=== PATIENT | female | born 1995 | race Caucasian/White ===

== ENCOUNTER 2022-06-11 13:29 | Emergency (ER) | payer MEDICAID, SELFPAY ==
[2022-06-11 13:30] VITALS: BP 117/89; PULSE 79; RESP 16; TEMP 36.2; O2SAT 99; BMI 43.1
--- NOTE | 2022-06-11 13:49 | EDS_ITS ---
HPI History of Present Illness Chief Complaint: Back Informant: patient Onset/Context/Timing Onset: Days (5) Context: Sudden Onset Injury: bending Timing: Continuous Quality: Throbbing and - (Cramping, stabbing) Location: Lumbar Worsened by: improves with - (Laying flat) Relieved by: Medications and - (Heat) Associated Symptoms Associated Symptoms: Abdominal Pain and Constipation; Negative for Numbness, Tingling, Radiation to Right Leg, Radiation to Left Leg, Fever, Dysuria, Unable to Ambulate, Unable to Transfer, Urinary Retention, Urinary Incontinence or Fecal Incontinence Narrative Narrative: Patient presents with low back pain that has been constant for the last 5 days. Patient states she was going to the bathroom and was putting her knee brace back on when she felt pain in her low back. Patient states it is mainly on the right. Patient describes her pain as cramping, stabbing, and throbbing. Patient states it is worse when she lays flat. Patient states it is better with hot showers. Patient states she has been taking muscle relaxers which have been helping somewhat. Patient denies any position of comfort. Patient states she has been constipated recently. Patient states the pain does radiate around into her abdomen. Patient admits to some nausea and vomiting. Patient states she went to an urgent care where they checked her urine and noted some blood in her urine. Patient denies any dysuria. Patient denies any bowel or bladder changes. Patient denies any radiation of pain to her lower extremities. PFSH PFSH Medical History no medical history no medical history Home Medications oxycodone-acetaminophen 5 mg-325 mg tablet 1 tab PO Q6H PRN PRN Pain 3 days #12 TABLETS 06/11/22 [Rx Last Taken Unknown] Allergy/AdvReac Type Severity Reaction Status Date / Time acetaminophen [From Vicodin] Allergy Intermediate . Verified 06/11/22 13:30 erythromycin base Allergy Intermediate . Verified 06/11/22 13:30 hydrocodone [From Vicodin] Allergy Intermediate . Verified 06/11/22 13:30 Penicillins Allergy Intermediate . Verified 06/11/22 13:30 Sulfa (Sulfonamide Allergy Intermediate . Verified 06/11/22 13:30 Antibiotics) amoxicillin Allergy Hives Verified 06/11/22 13:30 Surgical History H/O adenoidectomy History of tonsillectomy no surgical history Social History Smoking Status: Never smoker ROS ROS ED Constitutional Constitutional ED: Denies chills or fever(s) Eyes Eyes: Denies blurry vision or change in vision ENT ENT ED: Denies rhinorrhea or sore throat Cardiovascular Cardiovascular: Denies chest pain or palpitations Respiratory/Chest Respiratory/Chest: Reports dyspnea; Denies cough Gastrointestinal Gastrointestinal: Reports nausea and vomiting Genitourinary Genitourinary ED: Reports hematuria; Denies dysuria Musculoskeletal Musculoskeletal: Reports back pain; Denies neck pain Integumentary Denies abscess or rash Neurologic Neurologic: Denies headache(s) or weakness Allergic/Immunologic Allergic/Immunologic ED: Denies mouth swelling or urticaria EXAM Physical Exam Const Vital Signs: 06/11/22 13:30 Temperature 97.2 F L Temperature Source Temporal Pulse Rate 79 Respiratory Rate 16 Blood Pressure 117/89 H Blood Pressure Mean 98 Pulse Ox 99 Oxygen Delivery Method Room Air Positive well nourished, well developed and obese General Appearance ED: well developed and NAD Nutritional Appearance: obese HEENT Reports moist mucous membranes Neck supple and no JVD GI soft to palpation Palpation: tender RLQ (Mild) and RUQ (Mild); Negative for guarding or rebound tenderness present Narrative: There is some mild right CVA tenderness. Back/Spine Back/Spine Narrative: There is mild tenderness over the right lumbar paraspinal area. There is mild right CVA tenderness. There is no edema or ecchymosis. There is no bony crepitance or step-off. There is no midline tenderness. Lumbar Spine / Lower Back: straight leg raise negative bilaterally Neuro oriented x3 and no sensory deficits noted Sensorium / Orientation: alert Motor Exam: strength 5/5 throughout Psych mental status grossly normal MDM MDM MDM Narrative Medical decision making narrative: Patient was given IV fluids and Toradol here. Patient was also given a dose of Zofran. CBC shows a mild leukocytosis of 12.0. Comprehensive metabolic profile was essentially within normal limits. Serum hCG was negative. CT scan of the abdomen pelvis was obtained. There is a 5 mm calculus at the right proximal ureter with moderate hydronephrosis. This was interpreted by the radiologist and reviewed by myself. Urinalysis showed a leukocyte esterases of 500 with 5- 10 white blood cells and 10-25 epithelial cells. There were no bacteria noted. Patient is feeling better on reevaluation. Patient was advised of her findings. Patient was instructed to take [id number] ibuprofen as needed for pain. Patient was also given a prescription for a short course of Lambert to take for severe pain. Patient was instructed to drink plenty of fluids. Patient was instructed to follow-up with her primary care physician in 3 to 5 days. Patient was also given a referral for urology. Patient understands and is agreeable with the plan. All questions were answered. Lab Data Attestation: I reviewed the patient's lab results. Labs: Laboratory Results - last 24 hr 06/11/22 06/11/22 06/11/22 14:23 14:23 14:23 WBC 12.0 H RBC 4.51 Hgb 13.6 Hct 38.8 MCV 86.0 MCH 30.2 MCHC 35.1 RDW Std Deviation 40.0 RDW Coeff of Nallely 12.9 Plt Count 342 MPV 10.5 Immature Gran % (Auto) 0.200 Neut % (Auto) 69.5 Lymph % (Auto) 19.2 [place] % (Auto) 9.5 Eos % (Auto) 0.8 Baso % (Auto) 0.8 Absolute Neuts (auto) 8.3 H Absolute Lymphs (auto) 2.31 Nucleated RBC % 0 Sodium 137 Potassium 3.5 Chloride 105 Carbon Dioxide 26.0 Anion Gap 6 BUN 11 Creatinine 1.02 Estim Creat Clear Calc 64.94 Est GFR (MDRD) Af Amer 83 Est GFR (MDRD) Non-Af 68 BUN/Creatinine Ratio 10.8 Glucose 95 Calcium 9.0 Total Bilirubin 1.30 H AST 20 ALT 20 Alkaline Phosphatase 65 Total Protein 7.8 Albumin 3.6 Globulin 4.2 Albumin/Globulin Ratio 0.9 Serum , Qual NEGATIVE Radiography Diagnostic Testing: Clinical Impression(s) from Imaging Studies Abdomen/Pelvis CT 06/11/22 13:55 IMPRESSION: Right hydroureteronephrosis secondary to a 5 mm calculus within the proximal ureter. Electronically Signed: Shirley Weldon MD at 15:15 EST , Discharge Plan Triage Chief Complaint: Back ED Provider: Robert Miles Dx/Rx/DC Orders Clinical Impression: Calculus of proximal right ureter, Morbid obesity with BMI of 40.0-44.9, adult Instructions: ED Kidney Stone w/ Colic Prescriptions: New oxycodone-acetaminophen [oxycodone-acetaminophen] 5-325 mg tablet 1 tab PO Q6H PRN PRN (Reason: Pain) 3 Days Qty: 12 0RF Primary Care Provider: Care Physician,No Primary Referrals: Melva Singh MD [Med Staff - Heat Treatment Technician] - 3-5 Days Jenny Vyas MD [Med Staff - Active Staff] - 3-5 Days Care Physician,No Primary [Primary Care Provider] - Disposition Disposition: Home, Self Care
--- NOTE | 2022-06-11 13:55 | CT_ITS ---
INDICATION: Right flank pain EXAMINATION: CT ABDOMEN AND PELVIS WITHOUT CONTRAST - CT Abdomen And Pelvis W/O Contrast Injection TECHNIQUE: Helically acquired images were obtained of the abdomen and pelvis without oral or IV contrast. A radiation dose optimization technique was used for this scan. IV Contrast dosage and agent: None. Oral contrast: None. COMPARISON: None. FINDINGS: LOWER CHEST: Lung bases are clear. No cardiomegaly or pericardial effusion. The lack of intravenous contrast limits evaluation of solid visceral organs. LIVER: Homogeneous. No focal mass. GALLBLADDER AND BILIARY TREE: No calcified gallstones. No gallbladder distension or wall edema. No intra- or extrahepatic biliary ductal dilation. PANCREAS: No focal cystic or solid mass. SPLEEN: Normal size without focal cystic or solid mass. ADRENAL GLANDS: No nodules. KIDNEYS AND URETERS: There is right-sided hydroureteronephrosis secondary to a 5 mm calculus within the proximal ureter. PERITONEUM: No ascites or free air. No other fluid collection. BOWEL: No stomach or bowel distension. There is nonvisualization of the appendix. No focal inflammatory change. LYMPH NODES: No enlarged mesenteric or retroperitoneal lymph nodes. VESSELS: Aorta is non-dilated. URINARY BLADDER: Unremarkable. REPRODUCTIVE ORGANS: No pelvic masses. ABDOMINAL WALL: There is a small fat-containing umbilical hernia. BONES: No lytic or blastic abnormality. CT/Abdomen/Pelvis without Cont IMPRESSION: Right hydroureteronephrosis secondary to a 5 mm calculus within the proximal ureter. Electronically Signed: Shirley Weldon MD at 15:15 EST ,
[2022-06-11] MEDS: 0.9% Normal Saline 1,000 ML 1000 ML IV (14:27)
[2022-06-11] MEDS: Ketorolac 30 MG/ML Syringe IV (14:28)
[2022-06-11] MEDS: Ondansetron 4 MG/2 ML Vial IV (14:28)
[2022-06-11 14:35] LABS: Absolute Lymphocyte Count 2.31 X10^3/uL (0.83-4.51); Absolute Neutrophil Count 8.3 X10^3/uL (2.0-7.7); Basophil% 0.8 % (0-1); Eosinophils% 0.8 % (0-5); Hematocrit 38.8 % (37-47); Hemoglobin 13.6 g/dL (12.0-15.0); Lymphocyte # 2.31 X10^3/ul (0.83-4.51); Lymphocyte % 19.2 % (19-41); Mean Corp Hgb Conc 35.1 g/dL (32-36); Mean Corpuscular Hgb 30.2 pg (27.0-32.0); Mean Platelet Vol. 10.5 fl (6.2-12.0); Monocyte# 1.14 X10^3/uL; Monocyte% 9.5 % (0-10); NRBC Flagged by Analyzer 0 % (0-5); Neutrophil # 8.33 X10^3/uL (2.7-7.7); Neutrophil % 69.5 % (47-70); Platelet Count 342 K/mm3 (150-450); RBC Distribution Width CV 12.9 % (11.6-14.6); Red Blood Count 4.51 M/mm3 (4.2-5.4)
[2022-06-11 14:43] LABS: Internal QC Validated? YES +Cl - CLEAR BKGD; Pregnancy, Serum, hCG Quali. NEGATIVE Negative
[2022-06-11 14:45] LABS: Bacteria 0 SEEN /hpf (None Seen); Mucous, Urine 0 SEEN /hpf (<or=2+)
[2022-06-11 14:48] LABS: ALB/GLOB Ratio 0.9 RATIO (0.9-2.4); AST(SGOT) 20 U/L (15-37); Alanine Aminotransfer ALT/SGPT 20 U/L (13-56); Albumin, Serum 3.6 g/dL (3.2-5.0); Alkaline Phosphatase 65 U/L (45-117); Anion Gap 6 (5-15); BUN 11 mg/dL (7-18); BUN/Creat Ratio 10.8 RATIO (10-20); Chloride 105 mmol/L (98-107); Creatinine, Serum 1.02 mg/dL (0.55-1.02); EST Glomerular Filtration Rate 68 mL/min (>60); Est Glom Filt Rate - Afr Amer 83 mL/min (>60); Estimated Creatinine Clearance 64.94 ml/min; Globulin 4.2 g/dL (2.2-4.2); Glucose 95 mg/dL (74-106); Potassium 3.5 mmol/L (3.5-5.1); Protein, Total 7.8 g/dL (6.4-8.2); Sodium Level 137 mmol/L (136-145)
[2022-06-11 15:32] LABS: Color, Urine Yellow (Yellow); Glucose, Dipstick Normal (Normal); Ketone-Dipstick Negative (Negative); Leukocyte Esterase-Dipstick 500 /ul (Negative); Nitrite-Dipstick Negative (Negative); Occult Blood-Urine 50 /ul (Negative); Protein-Dipstick Negative (Negative); Urine Bilirubin Dipstick Negative (Negative); Urine Clarity Clear (Clear); Urine Urobilinogen Normal (Normal)
[2022-06-11 15:39] LABS: Red Blood Cells-Urine 0-5 SEEN /hpf (0-5); Squamous Epithelial Cells - UA 10-25 SEEN /hpf (5-10); White Blood Cells 5-10 SEEN /hpf (0-5)
[2022-06-11 15:55] VITALS: BP 118/75; PULSE 80; RESP 16; O2SAT 98
== END 2022-06-11 16:02 | disposition home or self-care (01) ==
PROVIDERS: Emergency Provider Emergency Medicine; Visit Provider Emergency Medicine
DX: N13.2 Hydronephrosis with renal and ureteral calculous obstruction (principal); E66.01 Morbid (severe) obesity due to excess calories; Z68.41 Body mass index [BMI] 40.0-44.9, adult; R31.9 Hematuria, unspecified; K59.00 Constipation, unspecified
CPT/HCPCS: 74176; 80053; 81001; 84703; 85025; 96361; 96374; 96375; 99282; J7030; J2405

== ENCOUNTER 2024-02-20 06:25 | Emergency (ER) | payer OTHER, SELFPAY ==
[2024-02-20 06:26] VITALS: BP 165/100; PULSE 97; RESP 18; TEMP 36.7; O2SAT 97; BMI 44.5
--- NOTE | 2024-02-20 06:39 | EDS_ITS ---
HPI History of Present Illness Chief Complaint: Allergic Reaction Informant: patient Onset/Context/Timing Onset: Today Timing: Continuous Current Severity: Mild Maximum Severity: Mild Narrative Narrative: 29-year-old female was going to work this morning when a loss flew into her car and stung her once or twice below her right eye. In the past she got stung in her hand and had significant swelling. This occurred today around 6 AM about 35 minutes prior to arrival. She denies any tongue or lip swelling. She denies any shortness of breath or wheezing. She has been holding ice to it. Prior similar symptoms: Yes Recent Illness/Hospitalization: No PFSH PFSH Home Medications ?Medication ?Instructions ?Recorded ?Last Taken ?Type etonogestrel 0.12 mg-ethinyl vag ring vaginal 02/20/24 Unknown History estradiol 0.015 mg/24 hr vaginal ring (EnilloRing) prednisone 20 mg tablet 40 mg (2 x 20 mg) PO DAILY 3 days 02/20/24 Unknown Rx #6 tabs sertraline 25 mg tablet 50 mg PO DAILY 02/20/24 Unknown History Allergy/AdvReac Type Severity Reaction Status Date / Time acetaminophen (From Vicodin) Allergy Intermediate . Verified 02/20/24 06:28 erythromycin base Allergy Intermediate . Verified 02/20/24 06:28 hydrocodone (From Vicodin) Allergy Intermediate . Verified 02/20/24 06:28 Penicillins Allergy Intermediate . Verified 02/20/24 06:28 Sulfa (Sulfonamide Allergy Intermediate . Verified 02/20/24 06:28 Antibiotics) amoxicillin Allergy Hives Verified 02/20/24 06:28 Surgical History H/O adenoidectomy History of tonsillectomy Social History Smoking Status: Never smoker ROS ROS ED ROS Narrative Denies recent illness. Constitutional Constitutional ED: Denies chills or fever(s) Eyes Eyes: Denies blurry vision ENT ENT ED: Denies ear pain Cardiovascular Cardiovascular: Denies chest pain Respiratory/Chest Respiratory/Chest: Denies cough Gastrointestinal Gastrointestinal: Denies abdominal pain Genitourinary Genitourinary ED: Denies dysuria or hematuria Musculoskeletal Musculoskeletal: Denies arthralgias Integumentary Denies abscess Neurologic Neurologic: Denies headache(s) Psychiatric Psychiatric: Denies anxiety Endocrine Endocrinology: Denies cold intolerance Hematologic/Lymphatic Hematologic/Lymphatic: Reports none Allergic/Immunologic Allergic/Immunologic ED: Denies mouth swelling, tongue swelling or urticaria EXAM Physical Exam Narrative Exam Narrative: Well-appearing 29-year-old female. Vital signs stable afebrile. Pulse ox 97% on room air no hypoxia. H EENT exam unremarkable. Neck nontender no lymphadenopathy. Lips and tongue are not swollen. Patient has mild swelling below her right eye. Does not involve the upper or lower lid. There is no stinger currently in the skin. Neck nontender. Lungs clear. Heart regular rhythm no murmur. Abdomen soft nontender. Moving all 4 extremities. Nontender no rashes. She is awake and alert. No focal motor deficits. Const Vital Signs: 02/20/24 06:26 Temperature 98.1 F Temperature Source Oral Pulse Rate 97 Respiratory Rate 18 Blood Pressure 165/100 H Blood Pressure Mean 121 Pulse Ox 97 Oxygen Delivery Method Room Air Positive well nourished and well developed; Negative for cachectic, contractures or unkempt General Appearance ED: well developed and NAD; Negative for unkempt, cachectic, contractures, cyanotic, diaphoretic or pallor Nutritional Appearance: Negative for cachectic HEENT Reports moist mucous membranes; Denies dry mucous membranes HEENT Narrative: Minimal swelling right below her right eye. Does not involve the eye or upper or lower lid. It is along her right cheek. Negative for trauma or tenderness Mouth ED: No dry mucous membranes Mouth: No dry mucous membranes Eyes PERRL and EOMs intact bilaterally General Eye ED: Negative for pale conjunctiva or scleral icterus Neck no lymphadenopathy, supple and no JVD Lymph Lymphatic: Negative for other Chest Wall inspection of chest normal and palpation of chest normal Resp normal respiratory effort and clear to auscultation bilaterally Effort and Inspection: Negative for retractions Auscultation: Negative for rales, rhonchi, wheezes or diminished lung sounds Cardio regular rate, regular rhythm, S1 normal heart sound, S2 normal heart sound and no murmurs GI normal to inspection, nondistended, normoactive bowel sounds, non-tender, non- distended and no masses Palpation: soft; Negative for tender, guarding or rebound tenderness present Back/Spine no CVA tenderness General Back: Negative for CVA tenderness Cervical Spine: Negative for cervical spine tenderness Thoracic Spine / Upper Back: Negative for thoracic spinal tenderness or paraspinal muscle tenderness Lumbar Spine / Lower Back: Negative for lumbar spinal tenderness Extremity normal to inspection General Extremety ED: Negative for edema or tenderness General Extremity: Negative for edema Neuro oriented x3 and CN's II-XII intact bilaterally Sensorium / Orientation: alert; Negative for orientation impaired, lethargic or stuporous Motor Exam: strength 5/5 throughout Psych mental status grossly normal Appearance: Negative for unkempt Attitude: No agitated Mood & Affect: Negative for depressed, anxious or tearful Skin no rashes or lesions noted, no wounds and skin turgor normal Skin Narrative: 29-year-old female local allergic reaction along her right cheek to the bee sting. She will be given a single dose of prednisone. Observed as long as she is doing well should be discharged to home. General Skin Exam: elasticity normal; Negative for jaundice or pallor Lesions: No lesion noted Rashes: No rashes noted Trauma: Negative for abrasion Wounds: Negative for wounds noted MDM MDM MDM Narrative Medical decision making narrative: 29-year-old female acute loss thing right cheek. Minimal local swelling. No generalized reaction. No hives. No tongue or lip swelling. Treated with oral prednisone and observed. Repeat exam patient doing well at 7:26 AM. She has a red yarelis along her right cheek now its about the size of a quarter. It is not significantly raised. Again there is no swelling of her lips or tongue. She is in no distress. She is not wheezing. She is comfortable being discharged to home. I did give her prescription for prednisone if this is worse or not improving over the next several days. Bentyl as needed. Patient is comfortable with the plan of being discharged to home. History & Record Review Discussion w/independent historian: Patient and Family Discharge Plan Triage Chief Complaint: Allergic Reaction ED Provider: Huang Perkins Dx/Rx/DC Orders Clinical Impression: Wasp sting, Allergic reaction Instructions: ED Insect Sting, Local Reaction Prescriptions: New prednisone 20 mg tablet 40 mg PO DAILY 3 Days Qty: 6 0RF No Action sertraline 25 mg tablet 50 mg PO DAILY etonogestrel-ethinyl estradiol [EnilloRing] 0.12-0.015 mg/24 hr ring vaginal Primary Care Provider: Lucinda Chandra Referrals: Care Physician,No Primary [Non-Staff] - Activity Restrictions/Additional Instructions: Ice to the area. Benadryl as needed. I will give you a prescription for prednisone. If you are no worse tomorrow you do not even need to get it filled or take it. If you develop hives or rash or the swelling is a lot worse start the prednisone. Print Language: Turkmen Disposition Disposition: Home, Self Care
[2024-02-20] MEDS: predniSONE 20 MG Tablet 40 MG PO (06:41)
[2024-02-20 07:41] VITALS: BP 142/99; PULSE 94; RESP 16; TEMP 36.6; O2SAT 99
== END 2024-02-20 07:42 | disposition home or self-care (01) ==
PROVIDERS: Emergency Provider Emergency Medicine; PCP Family Medicine; Visit Provider Emergency Medicine
DX: T63.461A Toxic effect of venom of wasps, accidental (unintentional), initial encounter (principal)
CPT/HCPCS: 99282

== ENCOUNTER 2024-09-03 18:16 | Emergency (ER) | payer BC, SELFPAY ==
[2024-09-03 18:17] VITALS: BP 145/98; PULSE 81; RESP 16; TEMP 36.8; O2SAT 99; BMI 43.9
--- NOTE | 2024-09-03 18:20 | RAD_ITS ---
PROCEDURE: Right knee radiographs REASON FOR EXAM: PAIN TECHNIQUE: Four views of the right knee COMPARISON: None. FINDINGS: See impression RAD/Knee 4 or More Views IMPRESSION: Negative for fracture or malalignment. No significant arthropathy. Minimal roosevelt int effusion. Reading Location: [facility]
--- NOTE | 2024-09-03 19:42 | ED.VIS.LOWEX ---
HPI History of Present Illness Chief Complaint: Lower Extremity Injury Informant: patient Narrative Narrative: Increasing pain right knee for the last few days. States doing work up and down ladders. No direct falls. Has been using Motrin. Pain worse with weightbearing. She is concerned due to 2 years ago for something similar more significant pain negative for workup in the ED. She had CT scans reviewed by orthopedic team had concerns for small plateau fracture. She was in a knee immobilizer knee brace for recovery. No surgical intervention. Prior similar symptoms: Yes PFSH PFSH Medical History Anxiety Depression Home Medications ?Medication ?Instructions ?Recorded ?Last Taken ?Type buspirone 10 mg tablet 10 mg PO BID PRN PRN anxiety 09/03/24 Unknown History cholecalciferol (vitamin D3) 25 1,000 unit PO DAILY 09/03/24 Unknown History mcg (1,000 unit) capsule (Vitamin D3) sertraline 100 mg tablet 100 mg PO DAILY 09/03/24 Unknown History vitamin B12 500 mcg-folic acid 400 2 tab PO DAILY 09/03/24 Unknown History mcg tablet Allergy/AdvReac Type Severity Reaction Status Date / Time acetaminophen (From Vicodin) Allergy Intermediate . Verified 09/03/24 18:19 erythromycin base Allergy Intermediate . Verified 09/03/24 18:19 hydrocodone (From Vicodin) Allergy Intermediate . Verified 09/03/24 18:19 Penicillins Allergy Intermediate . Verified 09/03/24 18:19 Sulfa (Sulfonamide Allergy Intermediate . Verified 09/03/24 18:19 Antibiotics) amoxicillin Allergy Hives Verified 09/03/24 18:19 Surgical History H/O adenoidectomy History of tonsillectomy Social History Smoking Status: Never smoker ROS ROS ED Constitutional Constitutional ED: Denies chills, fever(s) or sweats Gastrointestinal Gastrointestinal: Denies diarrhea, nausea or vomiting Musculoskeletal Musculoskeletal: Reports extremity pain; Denies back pain or neck pain Integumentary Denies rash or wounds Neurologic Neurologic: Denies paresthesias EXAM Physical Exam Const Vital Signs: 09/03/24 18:17 09/03/24 19:48 Temperature 98.2 F 98.2 F Temperature Source Temporal Pulse Rate 81 66 Respiratory Rate 16 16 Blood Pressure 145/98 H 110/66 Blood Pressure Mean 113 80 Pulse Ox 99 98 Oxygen Delivery Method Room Air Positive well nourished and well developed General Appearance ED: well developed and NAD HEENT Reports moist mucous membranes normocephalic and atraumatic Eyes General Eye ED: Yes normal appearance of both eyes Neck full ROM Chest Wall Chest: Negative for tenderness Resp normal respiratory effort and normal air movement Effort and Inspection: symmetric chest movement; Negative for respiratory distress Cardio regular rate, regular rhythm and no murmurs Peripheral Pulses: pulses 2+ throughout GI normal to inspection, nondistended, normoactive bowel sounds and non-tender Palpation: Negative for guarding or rebound tenderness present Extremity Extremity Narrative: Right lower extremity negative logroll knee extensor make intact. Negative patellar grind. Positive José Antonio's with varus stress. General Extremety ED: Yes tenderness; Negative for edema General Extremity: Negative for edema Neuro oriented x3 and no sensory deficits noted Sensorium / Orientation: awake and alert Skin no rashes or lesions noted and no wounds MDM MDM MDM Narrative Medical decision making narrative: Interventions / MDM: Differential diagnosis: Internal derangement right knee. Meniscal injury. Diagnosis considered but do not suspect: Fracture however x-ray negative. No clinical septic knee. My EKG interpretation: N/A Imaging independently reviewed and interpreted by myself: 4 view x-ray right knee: No fracture minimal joint effusion also read by radiology. External documents reviewed: N/A Test considered but not ordered:N/A ED course: Patient increasing pain right knee. Clinical septic knee. No clinical tendon injury. X-ray minimal joint effusion. Exam with positive José Antonio's medial aspect. Discussed concerns for meniscal injury internal derangement. However she reports history of small tibial plateau fractures previously. I discussed treatment would be immobilization and crutches for which she has hinged brace and immobilizer at home. She will use those. She does follow orthopedics through [facility]. She will call them tomorrow for outpatient follow-up. She will continue Tylenol and ibuprofen. She is reassured. All questions were answered. Re-evaluation: stable Disposition discussed with patient/family/significant other: Patient Case discussed with consulting clinician: N/A This note was generated with [employer] software. It may contain incorrect words, spelling, and punctuation that were not noted in checking the note before signing. Radiography Diagnostic Testing: Clinical Impression(s) from Imaging Studies Knee X-Ray 09/03/24 18:20 IMPRESSION: Negative for fracture or malalignment. No significant arthropathy. Minimal joint effusion. Reading [facility] Discharge Plan Triage Chief Complaint: Lower Extremity Injury ED Provider: Florencio Newsome Dx/Rx/DC Orders Clinical Impression: Acute internal derangement of right knee, Acute pain of right knee Instructions: ED Meniscal Injury Knee Poss Prescriptions: No Action sertraline 100 mg tablet 100 mg PO DAILY buspirone 10 mg tablet 10 mg PO BID PRN PRN (Reason: anxiety) cholecalciferol (vitamin D3) [Vitamin D3] 25 mcg (1,000 unit) capsule 1,000 unit PO DAILY vitamin I95-potnz acid 500-400 mcg tablet 2 tab PO DAILY Rx Instructions: administer with a meal Primary Care Provider: Lucinda Chandra Referrals: Lucinda Chandra DO [Primary Care Provider] - Activity Restrictions/Additional Instructions: Right knee x-ray negative for fracture mild knee effusion. Concern for meniscal injury. Use your knee brace at home crutches. Continue Motrin and alternating Tylenol. Follow-up with your orthopedic team for reevaluation Print Language: Tajik Disposition Disposition: Home, Self Care Discharge Date/Time: 09/03/24 19:49
[2024-09-03 19:48] VITALS: BP 110/66; PULSE 66; RESP 16; TEMP 36.8; O2SAT 98
== END 2024-09-03 19:49 | disposition home or self-care (01) ==
PROVIDERS: Emergency Provider Emergency Medicine; PCP Family Medicine; Visit Provider Emergency Medicine
DX: M25.561 Pain in right knee (principal); M23.91 Unspecified internal derangement of right knee; F41.9 Anxiety disorder, unspecified; F32.A Depression, unspecified; Z79.899 Other long term (current) drug therapy
CPT/HCPCS: 73564; 99282